=== PATIENT | female | born 1985 | race Caucasian/White ===

== ENCOUNTER 2022-01-29 11:47 | Emergency (ER) | payer OTHER ==
[2022-01-29] MEDS ORDERED: FAMOTIDINE 20 MG/2 ML VIAL IV ONE (12:34)
[2022-01-29 12:48] LABS: Absolute Lymphocytes (CBC) 1.4 K/uL (0.7-4.9); Hematocrit 45.7 % (36.0-45.0); Lymphocytes % 29.6 % (15.3-44.8); MCV 89.8 fL (80-100); MPV 9.4 fL (7.6-11.3); RBC Red Blood Cell Count 5.09 M/uL (3.86-4.86)
--- NOTE | 2022-01-29 12:50 | RAD REPORT ---
EXAM DESCRIPTION: US - Abdomen Exam Limited - 01/29/2022 12:25 pm CLINICAL HISTORY: Abdominal pain. COMPARISON: None. FINDINGS: The gallbladder wall is not thickened. Two echogenic structures measuring about 3 millimeters do not exhibit posterior shadowing. The biliary tree is normal caliber. IMPRESSION: Two small echogenic structures within the gallbladder may represent polyps or stones whi ch did not shadow secondary to a combination of their small size and technical factors. Follow-up ult rasound in 1 year recommended for re-evaluation
[2022-01-29 13:16] LABS: Albumin 3.6 g/dL (3.4-5.0); Bilirubin Total 0.5 mg/dL (0.2-1.0); Potassium 3.7 mmol/L (3.5-5.1); Protein, Total 7.1 g/dL (6.4-8.2)
[2022-01-29 15:40] LABS: Urine Blood Negative (Negative); Urine Glucose Negative (Negative); Urine Protein Trace (Negative); Urine Specific Gravity >=1.030 (1.005-1.030)
[2022-01-29 16:10] LABS: Urine Bacteria <20 /HPF (<20); Urine RBC <5 /HPF (None Seen)
[2022-01-29 16:11] LABS: Urine Mucus 1+ /HPF (None Seen)
--- NOTE | 2022-01-29 17:16 | RAD REPORT ---
EXAM DESCRIPTION: CT - Abdomen Pelvis W Contrast - 01/29/2022 5:00 pm CLINICAL HISTORY: Abdominal pain COMPARISON: none. TECHNIQUE: Computed axial tomography of the abdomen pelvis was obtained. 100 cc Isovue-300 was admin istered intravenously. Oral contrast was not requested which limits evaluation of bowel and appendix All CT scans are performed using dose optimization technique as appropriate and may include automated exposure control or mA/KV adjustment according to patient size. FINDINGS: The liver, spleen, pancreas, adrenal and right kidney appear unremarkable. 2 millimeter ca lculus left kidney. No hydronephrosis There is no evidence of diverticulitis. Mild wall thickening of several loops of ileum. Stranding within the adjacent mesentery. Small amount of pelvic ascites. ICD within the uterus. Small umbilical hernia IMPRESSION: Mild wall thickening of several loops of ileum may indicate inflammation
--- NOTE | 2022-01-29 17:29 | EDPHYS ---
Physician Documentation [facility] Name: Freida Owens Age: 36 yrs Sex: Female : 1985 Arrival Date: 01/29/2022 Time: 11:49 Bed 5 Private MD: ED Physician Michele Owens HPI: 01/29 12:08 This 36 yrs old Female presents to ER via Unassigned with complaints of Abdominal Pain. ms3 12:08 The patient presents with abdominal pain in the right upper quadrant. Onset: The ms3 symptoms/episode began/occurred acutely, 3 day(s) ago. The symptoms do not radiate. Associated signs and symptoms: none. The symptoms are described as sharp. Modifying factors: The symptoms are alleviated by nothing, the symptoms are aggravated by nothing. Severity of pain: At its worst the pain was moderate severe in the emergency department the pain has improved. 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 - Social history:: Smoking status: Patient denies any tobacco usage or history of. ROS: 12:08 Constitutional: Negative for fever, and chills. Neck: Negative for injury, pain, and ms3 swelling, Cardiovascular: Negative for chest pain, and palpitations. Respiratory: Negative for shortness of breath, cough, wheezing, and pleuritic chest pain, Abdomen/GI: Negative for abdominal pain, nausea, vomiting, diarrhea, and constipation, Back: Negative for injury and pain, MS/Extremity: Negative for injury and deformity, Skin: Negative for injury, rash, and discoloration, Neuro: Negative for headache, weakness, numbness, tingling. Psych: Negative for depression, anxiety, suicide ideation, homicidal ideation, and hallucinations. Exam: 12:13 Constitutional: This is a well developed, well nourished patient who is awake, alert, ms3 and in no acute distress. Head/Face: Normocephalic, atraumatic. ENT: Nares patent. No nasal discharge, no septal abnormalities noted. Tympanic membranes are normal and external auditory canals are clear. Oropharynx with no redness, swelling, or masses, exudates, or evidence of obstruction, uvula midline. Mucous membranes moist. Neck: Trachea midline, no cervical lymphadenopathy. Supple, full range of motion without nuchal rigidity, or vertebral point tenderness. No Meningismus. Chest/axilla: Normal chest wall appearance and motion. Nontender with no deformity. Cardiovascular: Regular rate and rhythm with a normal S1 and S2. No gallops, murmurs, or rubs. Normal PMI, no JVD. No pulse deficits. Respiratory: Lungs have equal breath sounds bilaterally, clear to auscultation and percussion. No rales, rhonchi or wheezes noted. No increased work of breathing, no retractions or nasal flaring. 12:13 Psych: Awake, alert, with orientation to person, place and time. Behavior, mood, and affect are within normal limits. 12:13 Abdomen/GI: Inspection: abdomen appears normal, Bowel sounds: normal, Palpation: moderate abdominal tenderness, in the right upper quadrant. Vital Signs: 12:34 BP 144 / 85; Pulse 100; Resp 16; Pulse Ox 98% on R/A; Weight 88 kg; Height 5 ft. 7 in. vg1 (170.18 cm); Pain 0/10; 15:00 BP 118 / 83; Pulse 81; Resp 20; Pulse Ox 97% ; bm7 17:00 BP 124 / 82; Pulse 79; Resp 16; Pulse Ox 97% ; bp 12:34 Body Mass Index 30.38 (88.00 kg, 170.18 cm) vg1 MDM: 12:13 Differential diagnosis: cholecystitis, Cholelithiasis, non-specific abd pain, ms3 pancreatitis. 14:09 Patient medically screened. ms3 17:34 Data reviewed: vital signs, nurses notes, lab test result(s), radiologic studies, and ms3 as a result, I will discharge patient. Counseling: I had a detailed discussion with the patient and/or guardian regarding: the historical points, exam findings, and any diagnostic results supporting the discharge/admit diagnosis, lab results, radiology results, the need for outpatient follow up, to return to the emergency department if symptoms worsen or persist or if there are any questions or concerns that arise at home. ED course: Discussed labs, US, CT, physical exam findings with patient. Patient to follow-up with Dr Beebe in 2 to 3 days. Patient understands and agrees with plan. All questions were answered. Return precautions discussed include worsening symptoms, or any other concerns. On reevaluation patient is alert and oriented x4, in no apparent distress, nontoxic-appearing, speaking full sentences, ambulatory in emergency department.. 01/29 12:08 Order name: CBC with Diff; Complete Time: 14:09 ms3 01/29 12:08 Order name: CMP; Complete Time: 14:09 ms3 01/29 12:08 Order name: Lipase; Complete Time: 14:09 ms3 01/29 12:08 Order name: Urine Microscopic Only; Complete Time: 16:25 ms3 01/29 15:40 Order name: Urine Dipstick-Ancillary; Complete Time: 16:09 EDMS 01/29 12:08 Order name: Abdomen Limited US; Complete Time: 14:09 ms3 01/29 12:08 Order name: IV Saline Lock; Complete Time: 12:35 ms3 01/29 12:08 Order name: Labs collected and sent; Complete Time: 12:35 ms3 01/29 12:08 Order name: Urine Dipstick-Ancillary (obtain specimen); Complete Time: 15:50 ms3 01/29 12:08 Order name: Urine Test (obtain specimen); Complete Time: 15:51 ms3 01/29 14:14 Order name: CT Abd/Pelvis - IV Contrast Only; Complete Time: 17:23 ms3 Administered Medications: 12:35 Drug: Pepcid (famotidine) 20 mg Route: IVP; Site: right antecubital; eh3 13:46 Follow up: Response: No adverse reaction ld1 Disposition Summary: 01/29/22 17:28 Discharge Ordered Location: Home ms3 Condition: Stable ms3 Diagnosis - Upper abdominal pain, unspecified ms3 Followup: ms3 - With: Ned Quinteros MD - When: 2 - 3 days - Reason: Recheck today's complaints Discharge Instructions: - Discharge Summary Sheet ms3 - Abdominal Pain, Adult ms3 Forms: - Medication Reconciliation Form ms3 - Thank You Letter ms3 - Antibiotic Education ms3 - Prescription Opioid Use ms3 Prescriptions: - BENTYL 20 mg - take 1 tablet by ORAL route every 6-8 hours; 20 tablet; Refills: 0, Product ms3 Selection Permitted Signatures: Dispatcher [employer] Silvina Hernandez, RN RN vg1 Michele Owens DO DO ms3 Alexsandra Muir eh3 Mackenzie Phillip RN ld1
--- NOTE | 2022-01-29 17:29 | ER ---
Nurse's Notes [facility] Name: Freida Owens Age: 36 yrs Sex: Female : 1985 Arrival Date: 01/29/2022 Time: 11:49 Bed 5 Private MD: Diagnosis: Upper abdominal pain, unspecified Presentation: 01/29 12:34 Chief complaint: Patient states: RUQ pain x 3 days that is cramping/shooting pain. Also vg1 stated diarrhea on . Coronavirus screen: Vaccine status: Patient reports being unvaccinated. Client denies travel out of the [place] in the last 14 days. Ebola Screen: Patient denies exposure to infectious person. Patient denies travel to an Ebola-affected area in the 21 days before illness onset. Initial Sepsis Screen: Does the patient meet any 2 criteria? No. Patient's initial sepsis screen is negative. Does the patient have a suspected source of infection? No. Patient's initial sepsis screen is negative. Risk Assessment: Do you want to hurt yourself or someone else? Patient reports no desire to harm self or others. Onset of symptoms was January 26, 2022. 12:34 Method Of Arrival: Ambulatory vg1 12:34 Acuity: BRO 3 vg1 Triage Assessment: 12:36 General: Appears in no apparent distress. uncomfortable, Behavior is calm, cooperative. vg1 Pain: Complains of pain in right upper quadrant Pain currently is 0 out of 10 on a pain scale. at worst was 10 out of 10 on a pain scale. Quality of pain is described as crampy, stabbing. GI: Abdomen is flat. 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 - Social history:: Smoking status: Patient denies any tobacco usage or history of. Screenin:00 Abuse screen: Denies threats or abuse. Denies injuries from another. Nutritional bm7 screening: No deficits noted. Tuberculosis screening: No symptoms or risk factors identified. Fall Risk None identified. Assessment: 14:00 General: SEE TRIAGE NOTE. bm7 16:00 Reassessment: No changes from previously documented assessment. Patient and/or family bp updated on plan of care and expected duration. Pain level reassessed. 17:50 Reassessment: PT D/C HOME AMBULATORY, DX WITH NONSPECIFIC ABDOMINAL PAIN. bp 17:52 GI: Bowel sounds present X 4 quads. Abd is soft X 4 quads. bp Vital Signs: 12:34 BP 144 / 85; Pulse 100; Resp 16; Pulse Ox 98% on R/A; Weight 88 kg; Height 5 ft. 7 in. vg1 (170.18 cm); Pain 0/10; 15:00 BP 118 / 83; Pulse 81; Resp 20; Pulse Ox 97% ; bm7 17:00 BP 124 / 82; Pulse 79; Resp 16; Pulse Ox 97% ; bp 12:34 Body Mass Index 30.38 (88.00 kg, 170.18 cm) vg1 ED Course: 11:49 Patient arrived in ED. as 11:54 Michele Owens DO is Attending Physician. ms3 12:27 Abdomen Limited US In Process Unspecified. EDMS 12:36 Triage completed. vg1 12:36 Arm band placed on. vg1 12:46 Inserted saline lock: 20 gauge in right antecubital area, using aseptic technique. kc6 Blood collected. 12:47 CBC with Diff Sent. kc6 12:47 CMP Sent. kc6 12:47 Lipase Sent. kc6 14:00 Patient has correct armband on for positive identification. Bed in low position. Call bm7 light in reach. Side rails up X2. Adult w/ patient. 14:04 Elkin Cardenas, RN is Primary Nurse. bp 17:02 CT Abd/Pelvis - IV Contrast Only In Process Unspecified. EDMS 17:28 Ned Quinteros MD is Referral Physician. ms3 17:51 No provider procedures requiring assistance completed. IV discontinued, intact, bp bleeding controlled, No redness/swelling at site. Pressure dressing applied. Administered Medications: 12:35 Drug: Pepcid (famotidine) 20 mg Route: IVP; Site: right antecubital; eh3 13:46 Follow up: Response: No adverse reaction ld1 Outcome: 17:28 Discharge ordered by . ms3 17:51 Discharged to home ambulatory. bp 17:51 Condition: stable 17:51 Discharge instructions given to patient, Instructed on discharge instructions, follow up and referral plans. medication usage, Demonstrated understanding of instructions, follow-up care, medications, Prescriptions given X 1. 17:52 Patient left the ED. bp Signatures: Dispatcher [employer] EDMS Addis Lozoya Brian, RN RN Silvina Abdi RN RN vg1 Michele Owens DO DO ms3 Nathalie Elizabeth, RN RN bm7 Mackenzie Phillip RN RN ld1 Alexsandra Muir 3 Katherine Conway 6
[2022-01-29 18:10] VITALS: O2SAT 97
[2022-01-29 18:11] VITALS: BP 124/82
== END 2022-01-29 17:52 | disposition home or self-care (01) ==
LOC: ER 11:47
DX: R10.11 Right upper quadrant pain (principal); Z88.5 Allergy status to narcotic agent; Z88.8 Allergy status to other drugs, medicaments and biological substances; Z91.040 Latex allergy status; Z91.048 Other nonmedicinal substance allergy status
CPT/HCPCS: 85025; 36415; 83690; 80053; 74177; 76705; 96374; 99284; Q9967; J3490; 81003; 81015